=== PATIENT | female | born 1975 ===

== ENCOUNTER 2016-12-24 14:17 | Inpatient (IN) | payer MEDICAID ==
[2016-12-24 14:17] VITALS: BMI 37.3
[2016-12-24 15:13] LABS: BASO # 0.1 K/uL (0.0-0.2); BASO % 0.7 % (0.0-2.0); EOS # 0.2 K/uL (0.0-0.7); HEMATOCRIT 43.5 % (34.0-47.0); LYMPH # 2.2 K/uL (1.0-4.3); LYMPH % 27.3 % (20.0-40.0); MEAN CELL VOLUME 86.9 fL (81.0-99.0); MEAN CORPUSCULAR HEMOGLOBIN 28.8 pg (27.0-31.0); MEAN CORPUSCULAR HGB CONC 33.2 g/dL (33.0-37.0); MEAN PLATELET VOLUME 8.1 fL (7.2-11.7); MONO # 0.9 K/uL (0.0-0.8); MONO % 10.8 % (0.0-10.0); NRBC % 0.1 % (0.0-2.0); RED CELL DISTRIBUTION WIDTH 15.3 % (11.5-14.5); WHITE BLOOD COUNT 7.9 K/uL (4.8-10.8)
[2016-12-24 15:15] LABS: CHLORIDE 105 mmol/L (98-107); POTASSIUM 3.5 mmol/L (3.6-5.2); SODIUM 137 mmol/L (132-148)
[2016-12-24 15:18] LABS: ALB/GLOB RATIO 1.3 (1.0-2.1); ALKALINE PHOSPHATASE 85 U/L (38-126); ALT/SGPT 21 U/L (9-52); AST/SGOT 19 U/L (14-36); BILIRUBIN,TOTAL 0.5 mg/dL (0.2-1.3); BLOOD UREA NITROGEN 13 mg/dL (7-17); CARBON DIOXIDE 20 mmol/L (22-30); GFR AFRICAN-AMERICAN > 60; GLUCOSE,RANDOM 125 mg/dL (65-105); TOTAL PROTEIN 7.8 g/dL (6.3-8.3)
[2016-12-24 15:19] LABS: ALCOHOL SERUM < 10 mg/dl (0-10)
[2016-12-24 15:38] LABS: RBC URINE 1 /hpf (0-3); URINE BILIRUBIN NEGATIVE (NEGATIVE); URINE BLOOD NEGATIVE (NEGATIVE); URINE COLOR Yellow (YELLOW); URINE GLUCOSE (UA) NORMAL (Normal); URINE KETONE 1+ mg/dL (NEGATIVE); URINE LEUKOCYTE ESTERASE NEG Leu/uL (Negative); URINE PROTEIN 1+ mg/dL (NEGATIVE); URINE UROBILINOGEN NORMAL mg/dL (0.2-1.0); WBC URINE 2 /hpf (0-5)
--- NOTE | 2016-12-24 17:18 | C.PDOC ---
History Of Present Illness 41 y/o female brought in by EMS for evaluation of chronic anxiety. Pt recently ran out of [employer]. Denies suicidal ideation, homicidal ideation or any other complaints. Time Seen by Provider: 12/24/16 14:46 Chief Complaint (Nursing): Psychiatric Evaluation History Per: Patient History/Exam Limitations: no limitations Onset/Duration Of Symptoms: Days Current Symptoms Are (Timing): Still Present Modifying Factor(s): None Severity: Mild Associated Symptoms: Anxiety. denies: Suicidal Thoughts Involuntary Hold By: None Recent travel outside of the [place]: No Past Medical History Reviewed: Historical Data, Nursing Documentation, Vital Signs Vital Signs: Last Vital Signs Temp 98.4 F 12/24/16 18:45 Pulse 104 H 12/24/16 18:45 Resp 18 12/24/16 19:14 BP 101/70 12/24/16 18:45 Pulse Ox 97 12/24/16 18:45 - Medical History PMH: Anxiety, Bipolar Disorder, Depression - [facility] Procedures CLOSURE SKIN & SUBCUTANEOUS NEC (01/11/15) DPT ADMINISTRATION (01/11/15) INDIVID PSYCHOTHERAP NEC (11/05/14) INDIVIDUAL PSYCHOTHERAPY, SUPPORTIVE (05/01/16) MAGNETIC RESONANCE IMAGING OF MUSCULOSKELETAL (03/03/14) MAGNETIC RESONANCE IMAGING OF SPINAL CANAL (03/03/14) MEDICATION MANAGEMENT (04/03/16) OTHER GROUP THERAPY (11/05/14) PSYCHIAT DRUG THERAP NEC (02/19/15) Family History: States: Unknown Family Hx - Social History Hx Tobacco Use: No Hx Alcohol Use: No (occassional) Hx Substance Use: No - Immunization History Hx Tetanus Toxoid Vaccination: No Hx Influenza Vaccination: No Review Of Systems Except As Marked, All Systems Reviewed And Found Negative. Cardiovascular: Negative for: Chest Pain Respiratory: Negative for: Shortness of Breath Psych: Positive for: Anxiety. Negative for: Suicidal ideation Physical Exam - Physical Exam Appears: Non-toxic, No Acute Distress, Other (obese, anxious) Skin: Warm, Dry, No Rash Head: Atraumatic, Normacephalic Chest: Symmetrical Cardiovascular: Rhythm Regular, No Murmur Respiratory: Normal Breath Sounds, No Rales, No Rhonchi, No Wheezing Gastrointestinal/Abdominal: Normal Exam, Soft, No Tenderness Extremity: Bilateral: Atraumatic Neurological/Psych: Oriented x3, Normal Speech ED Course And Treatment - Laboratory Results Result Diagrams: 12/24/16 15:02 12/24/16 15:02 Lab Interpretation: Normal (ua neg, UDS neg) Urine POC: Negative O2 Sat by Pulse Oximetry: 98 (room air) Pulse Ox Interpretation: Normal Progress Note: seroquel and ativan Reevaluation Time: 17:18 Reassessment Condition: Improved - Physician Consult Information Outcome Of Conversation: dW Crisis, Niru, 1450 and 1620 Disposition Doctor Will See Patient In The: Hospital Counseled Patient/Family Regarding: Studies Performed, Diagnosis - Disposition Disposition: HOSPITALIZED Disposition Time: 17:18 Condition: GOOD - Clinical Impression Clinical Impression: Depression - Scribe Statement The provider has reviewed the documentation as recorded by the Katie Hugo Provider Attestation: All medical record entries made by the Katie were at my direction and personally dictated by me. I have reviewed the chart and agree that the record accurately reflects my personal performance of the history, physical exam, medical decision making, and the department course for this patient. I have also personally directed, reviewed, and agree with the discharge instructions and disposition.
[2016-12-24 19:22] VITALS: O2SAT 98
[2016-12-25 07:43] VITALS: TEMP 97.5
--- NOTE | 2016-12-25 11:21 | PCM.PSYCH ---
Initial Psychiatric Evaluation - Initial Psychiatric Evaluation Type of Admission: Voluntary Legal Status: Capacity Chief Complaint (in patient's own words): "I feel depressed." History of Present Illness and Precipitating Events: The patient is a 41yo female who is here for depression, anxiety, and suicidal ideation. She states that she is single with a 19yo son whom she lives with in an apartment in [place]. She is unemployed and is on welfare. The patient was last admitted to the [facility] 5 months ago and was following up with her psychiatrist at [facility] in [place] and was compliant with her medications but gradually became depressed again. She states that she is becoming increasingly depressed since past 2 months. She reports depressed mood and complains of a loss of interest in daily activities and states that she feels guilty about her lack of hygiene. She also feels guilty about not being healthy for her son. She says that she used to be active but no longer has the drive to do anything and has decreased concentration as well. She states that her mood is up and down and her mind is always racing. She also reports flight of ideas and poor concentration. The patient appears very unkempt, and isolative. However she denies any auditory or visual hallucinations. She states that she takes Seroquel, Clonapine, Ambien, Effexor, and Adderall, all of which she last took yesterday. She wishes to not have all of her medications changed because she is scared of changes but agreed to having some modified. She denies the use of alcohol, drugs, and marijuana. She states that she has been hospitalized for psych about 25 times. PMH None reported, Allergic to Geodon. Current Medications: Active Medications Generic Name Dose Route Start Last Admin Trade Name Freq PRN Reason Stop Dose Admin Clonazepam 1 mg 12/24/16 19:00 12/25/16 09:59 Klonopin PO 1 mg BID MISTY Administration Haloperidol 5 mg 12/24/16 18:48 Haldol PO Q1H PRN agitation, max 4x/24h Hydroxyzine HCl 50 mg 12/24/16 18:48 12/25/16 06:50 Atarax PO 50 mg Q6H PRN Administration Anxiety Pneumococcal Polyvalent Vaccine 0.5 ml 12/27/16 10:00 Pneumovax 23 Vaccine IM 12/27/16 10:01 .ONCE ONE Quetiapine Fumarate 200 mg 12/24/16 19:00 12/25/16 09:59 Seroquel PO 200 mg BID MISTY Administration Trazodone HCl 100 mg 12/24/16 18:48 Desyrel PO HS PRN Insomnia Past Psychiatric History - Past Psychiatric History Previous Treatment History: Inpatient Pertinent Medical Hx (Current Medical&Sleep Prob, Allergies): Allergies Allergy/AdvReac Type Severity Reaction Status Date / Time No Known Allergies Allergy Verified 12/24/16 14:23 Amphetamine Salt Combination [Adderall] 10 mg PO BID 12/24/16 Quetiapine Fumarate [Seroquel] 300 mg PO BID 12/24/16 Venlafaxine [Effexor] 75 mg PO BID 12/24/16 Zolpidem [Ambien] 10 mg PO HS 12/24/16 clonazePAM [clonAZEPAM] 1 mg PO BID 12/24/16 Review of Systems - Review of Systems All systems: reviewed and no additional remarkable complaints except - Psychiatric Psychiatric: Anhedonia, Anxiety, Depression, Difficulty Concentrating, Hopelessness, Irritability, Mood Swings, Suicidal Ideation Mental Status Examination - Personal Presentation Personal Presentation: Looks stated age - Affect Affect: Constricted, Depressed - Motor Activity Motor Activity: Psychomotor Retardation - Reliability in Providing Information Reliability in Providing Information: Poor, due to altered mood - Speech Speech: Organized - Mood Mood: Depressed, Anxious - Formal Thought Process Formal Thought Process: No Impairment - Obsessions/Compulsions Obsessions: No Compulsions: No - Cognitive Functions Orientation: Person, Place, Situation, Time Sensorium: Alert Attention/Concentration: Attentive Abstract Thinking: Marshall Estimate of Intelligence: Below average Judgement: Imparied, as evidence by: Poor judgement, Imparied, as evidence by: Lack of insight into illness - Risk Risk: Suicidal, Diminished functioning - Strength & Assets Inventory Strength & Assets Inventory: Cooperative DSM 5 DX - DSM 5 DSM 5 Diagnosis: Bipolar disorder mixed severe without psychotic features Sedative/hypnotic use disorder - Recommended/Plan of Treatment Treatment Recommendations and Plan of Treatment: Bipolar disorder mixed severe without psychotic features CBT Psychoeducation Supportive therapy, group therapy, individual therapy Effexor 75 mg daily Seroquel 200 mg by mouth twice a day Klonopin 1 mg by mouth twice a day Trazodone 100 mg by mouth daily at bedtime Sedative/hypnotic use disorder CBT Psychoeducation Supportive therapy, individual therapy Use [facility] for abstinence - Smoking Cessation Smoking Cessation Initiated: No
[2016-12-26 08:04] VITALS: RESP 18
--- NOTE | 2016-12-26 09:47 | PCM.PYCHPN ---
Psychiatric Progress Note - Psychiatric Progress Note Patient seen today, length of contact: 15min Patient Chief Complaint: "I'm not feeling well." Problems Identified/Issues Discussed: Patient seen and evaluated, chart reviewed an discussed with the nurse. The patient states that she is not feeling well and is still depressed. She says that she feels worse now that she has been taken off the Effexor and Adderall. She complains of not being able to shower or brush her teeth in weeks and wants somebody to shower and brush her teeth for her. She states that physically she is capable of showering but is unable to mentally. She depends on her homemaker to bathe her and so she wants to go home because her poor hygiene is giving her anxiety. She says that her appetite has decreased and she has no interest in interacting with the other patients or participating in group activities. She denies H/I, S/I, auditory or visual hallucinations and states that she slept well last night. She appears to be very isolated and withdrawn. She is very irritable and dependent on the nurses and other faculty to do things for her that she is capable of doing herself. She has a very flat affect, depressed mood, and is mentally unstable. Medication Change: Yes (increase seroquel, Increase effexor) Medical Record Reviewed: Yes Mental Status Examination - Cognitive Function Orientation: Person, Place, Situation, Time Memory: Intact Attention: WNL Concentration: WNL Association: WNL Fund of Knowledge: Poor - Mood Mood: Depressed, Anxious - Affect Affect: Constricted, Depressed - Speech Speech: Soft - Formal Thought Process Formal Thought Process: No Impairment - Suicidal Ideation Suicidal Ideation: No - Homicidal Ideation Homicidal Ideation: No Goal/Treatment Plan - Goal/Treatment Plan Need for Continued Stay: Remain at risks for inpatient hospitalization, Severe depression anxiety, Discharge may exacerbated symptoms Progress Toward Problem(s) and Goals/Treatment Plan: Bipolar disorder mixed severe without psychotic features CBT Psychoeducation Supportive therapy, group therapy, individual therapy Effexor 150 mg daily Seroquel 200 mg by mouth daily Seroquel 300 mg by mouth HS d/c Klonopin 1 mg by mouth twice a day Trazodone 100 mg by mouth daily at bedtime Sedative/hypnotic use disorder CBT Psychoeducation Supportive therapy, individual therapy Use [place] for abstinence - Smoking Cessation Smoking Cessation Initiated: No
[2016-12-26] MEDS ORDERED: Venlafaxine 75 mg ER Cap PO SCH (10:00)
[2016-12-26] MEDS: Venlafaxine 150 mg ER Cap PO SCH (10:14)
[2016-12-26 15:40] VITALS: BP 120/81; PULSE 118
[2016-12-27] MEDS ORDERED: Pneumococcal 23-Valent Vaccine IM ONE (10:00)
[2016-12-27] MEDS: Venlafaxine 150 mg ER Cap PO SCH (10:03)
--- NOTE | 2016-12-27 11:29 | PCM.PYCHDC ---
Mental Status Examination - Mental Status Examination Orientation: Person, Place, Situation, Time Memory: Intact Mood: Neutral Affect: Constricted Speech: Soft Attention: WNL Concentration: WNL Association: WNL Fund of Knowledge: WNL Formal Thought Process: No Impairment Description of patient's judgement and insight: good, fair Psychotic Thoughts and Behaviors: denies any AVH Suicidal Ideation: No Current Homicidal Ideation?: No Discharge Summary - Discharge Note Reason for Hospitalization: The patient is a 41yo female who is here for depression, anxiety, and suicidal ideation. She states that she is single with a 19yo son whom she lives with in an apartment in [place]. She is unemployed and is on welfare. The patient was last admitted to the [facility] 5 months ago and was following up with her psychiatrist at [facility] in [place] and was compliant with her medications but gradually became depressed again. She states that she is becoming increasingly depressed since past 2 months. She reports depressed mood and complains of a loss of interest in daily activities and states that she feels guilty about her lack of hygiene. She also feels guilty about not being healthy for her son. She says that she used to be active but no longer has the drive to do anything and has decreased concentration as well. She states that her mood is up and down and her mind is always racing. She also reports flight of ideas and poor concentration. The patient appears very unkempt, and isolative. However she denies any auditory or visual hallucinations. She states that she takes Seroquel, Clonapine, Ambien, Effexor, and Adderall, all of which she last took yesterday. She wishes to not have all of her medications changed because she is scared of changes but agreed to having some modified. She denies the use of alcohol, drugs, and marijuana. She states that she has been hospitalized for psych about 25 times. Consultations:: List each consultation separately and include: 1. Reason for request. 2. Findings. 3. Follow-up Summary of Hospital Course include:: 1. Description of specific treatment plan utilized for patients during their course of treatmen. 2. Summarize the time- course for resolution of acute symptoms and/or regressed behaviors. 3. Describe issues identified and worked on during hospitalization. 4. Describe medication utilized. 5. Describe medical problems identified and treated. 6. Reassessment of suicide risk Summary of Hospital Course: During the course of her stay, patient (pt) started progressively improving and she no longer remained anxious, depressed and suicidal. Her mood was getting better but patient requested to be discharged today. As per her, her home health aide has to give her a bath and has to brush her teeth. Patient remained med seeking. She said that she can stay if the doctor will give her Adderall. However, she started attending groups and meetings and started socializing. The doses of her medications were maximized and patient denied any feelings of hopelessness, helplessness, and worthlessness, denied any problem with the sleep or appetite, denied suicidal ideation or homicidal ideation. Pt denied any auditory or visual hallucinations. Patient reported improvement in her mood and tolerated these medications very well and denied any side effects. 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 Pt was educated and counseled about the risks of drinking and abusing drugs. Pt was educated and counseled to go to the ER or call 911 if pt develop suicidal ideation or homicidal ideation, worsening of symptoms or severe side effects of the meds. Prescriptions/Medication Reconciliation: QUEtiapine [Seroquel] 300 mg PO HS #30 tab QUEtiapine [SEROquel] 200 mg PO DAILY #30 tab traZODone [Desyrel] 100 mg PO HS PRN #30 tab PRN Reason: Insomnia Venlafaxine [Effexor XR] 150 mg PO DAILY #30 cer - Smoking Cessation Smoking Cessation Medication prescribed: No - Antipsychotic Medications Pt discharged on 2 or more routine antipsychotic medications: No
== END 2016-12-27 12:30 | disposition home or self-care (01) | DRG 430 ==
LOC: C.ER 14:17 → C.9E 17:15 → C.5E 18:02
PROVIDERS: ADMIT Psychiatry & Neurology Psychiatry; ATTEND Psychiatry & Neurology Psychiatry
PROC: GZ3ZZZZ Medication Management (ICD-10-PCS; principal; 2016-12-24)
PROC: GZHZZZZ Group Psychotherapy (ICD-10-PCS; 2016-12-24)
PROC: GZ56ZZZ Individual Psychotherapy, Supportive (ICD-10-PCS; 2016-12-24)
PROC: HZ59ZZZ Individual Psychotherapy for Substance Abuse Treatment, Supportive (ICD-10-PCS; 2016-12-24)
DX: F31.63 Bipolar disorder, current episode mixed, severe, without psychotic features (principal); F13.10 Sedative, hypnotic or anxiolytic abuse, uncomplicated